=== PATIENT | male | born 1995 | race Caucasian/White ===

== ENCOUNTER 2024-12-27 15:54 | Emergency (ER) | payer OTHER, SELFPAY ==
[2024-12-27 15:55] VITALS: BP 158/93
[2024-12-27] MEDS: MOTRIN 600 MG PO (17:45)
[2024-12-27] MEDS: FLEXERIL 10 MG PO (18:08)
--- NOTE | 2024-12-27 23:53 | ED.MUSCINJ ---
HPI-Injury
General
Chief Complaint: Musculo-Skeletal Complaint
Source: patient
Exam Limitations: none
Time Seen by Provider: 12/27/24 16:23
Nursing documentation reviewed up to this point in time: agreed with
History of Present Illness-Injury
Is this injury a work related problem?: No
Is pt an associate of [facility]?: No
Initial Injury comments:
Patient to ED with complaint of right lateral neck pain, neck stiffness. States he woke with symptoms this AM No history of trauma. Denies any fever/chills, recent illness. Pain does not radiate, no weakness in extremities. Brought self to ED
for eval.
Past History
Past History
ED Past Medical History: None
Review of Systems
Review of Systems
Allergies reviewed?: Yes
All Other Systems: ROS reviewed and negative except as documented in HPI and ROS
Constitutional: Reports no symptoms
EENT: Reports no symptoms
Respiratory: Reports no symptoms
Cardiac: Reports no symptoms
ABD/GI: Reports no symptoms
Musculoskeletal: Reports neck pain (Right sided neck pain. Neck stiffness)
Skin: Reports no symptoms
Neurological: Reports no symptoms
Psychiatric: Reports no symptoms
Musculoskeletal Injury Exam
Musculoskeletal Injury Exam
Right Neck:
Pain with Movement?: Moderate
Tender to palpation?: Moderate
Soft tissue swelling?: None
External deformity and angulation?: None
Joint effusion?: None
Contusion?: None
Hematoma-local bleeding into tissue?: None
Strain- Sprain- Tear (Connective tissue injury)?: Moderate
Crepitus with movement?: No
Joint instability?: No
Malalignment/deformity?: No
Range of motion: Limited
Distal skin color and temperature: normal-warm & good color
Capillary Refill: normal
Normal distal neurovascular exam?: Yes
Phy Exam
General Physical Exam
General Presentation: well appearing and mild distress
General age: appears stated age
General Skin: warm and dry
General Habitus: normal
General Mental: alert
Musculoskeletal Exam
Musculoskeletal Exam: neck pain (right lat neck pain. No vertebral point tenderness. No weakness in extremities), neuro vasc intact and other (equal strength and sensation bilaterally)
Skin Exam
Skin Exam: normal color, warm/dry and no rash
Psychiatric Exam
Psychiatric Exam: normal mood/affect
Injury Course
Orders/Labs/Results
Orders:
Orders
12/27/24 17:02
Ibuprofen [Motrin] 600 mg PO NOW STA
Cervical Spine 4 or 5 Vw [CR Cervical Spine 4 Or 5 Vw] Urgent
Comment:
Reason For Exam: pain, stiffness
12/27/24 17:29
Ibuprofen [Motrin] 600 mg .ROUTE .STK-MED ONE
12/27/24 17:57
Cyclobenzaprine HCl [Flexeril] 10 mg PO NOW STA
*Radiology
Radiology exam reviewed: radiology read reviewed
*Pulse Oximetry
Patient hypoxic: no
*Critical Care Note
Total Time (30-74mins, 75-104mins- exclusive of procedures): Not Applicable
Update Note
Update Note:
Patient to ED wtih right sided neck pain, neck stiffness. No history of new trauma. No fever/chills, recent illness. Moving all extremities, no radiation of pain, no weakness in extremities. Xray reviewed, no acute findings. Recommend Nsaid,
muscle relaxer at HS, short course of pain medication. He will be discharged home, follow up with PCP in AM<
ED Attending Note
-
Portions of this chart may have been created with voice recognition software.� Occasional wrong word or��sound alike� substitutions may have occurred due to the inherent limitations of voice recognition software.
Discharge Plan
Departure
Patient Disposition: Home (Routine Discharge)
Date of Disposition: 12/27/24
Time of Disposition: 17:40
Patient with high blood pressure during this ER visit?: No
Condition: Good
Covid-19: Not Applicable
Discharge Problem:
Cervical strain
Instructions: Ibuprofen, Using Cold for Pain, Neck pain - ED discharge instructions
Prescriptions:
New
ibuprofen 600 mg tablet
600 mg PO Q6H PRN (Reason: Pain) Qty: 20 0RF
hydrocodone-acetaminophen 5-325 mg tablet
1 tab PO Q4H PRN (Reason: Pain) Qty: 12 0RF
cyclobenzaprine 10 mg tablet
10 mg PO HS PRN (Reason: muscle spasms) Qty: 7 0RF
Referrals:
Efrain Real MD [Family Provider] -
Romel Lala MD [Active] - Call in 1-3 days for appt
Stand Alone Forms: Return to Work
Interventions
Interventions:
*Risk Screen - Suicide Last Done: 12/27/24 18:29
*Neglect/Abuse Screening Last Done: 12/27/24 18:29
*Nursing Disposition Last Done: 12/27/24 18:32
ED-Musculoskeletal Assessment Last Done: 12/27/24 18:29
Discharge Date and Time
Discharge Date/Time: 12/27/24 18:33
Print Language: MALDIVIAN
== END 2024-12-27 18:33 | disposition home or self-care (01) ==
LOC: EMR 15:54
PROVIDERS: EMERGENCY PHYSICIAN Emergency Medicine; FAMILY PHYSICIAN Internal Medicine
DX: S16.1XXA Strain of muscle, fascia and tendon at neck level, initial encounter (principal); X58.XXXA Exposure to other specified factors, initial encounter
CPT/HCPCS: 99283; 72050